=== PATIENT | female | born 1975 | race Caucasian/White ===

== ENCOUNTER → 2016-08-19 | Outpatient (CLI) | payer OTHER ==
[~2016-08-19] MED LIST: DRGTP12 TOP; HYDR-4079 PO; NRN600 PO
--- NOTE | 2016-08-19 14:16 | DIAGNOSTIC IMAGING REPORT ---
LEFT SHOULDER MIN 2 VIEWS ROUTINE CLINICAL HISTORY: Left shoulder pain COMPARISON: None. DISCUSSION: No fractures or dislocations are visualized. There are no visible periarticular calcifications. No destructive lesions are evident. IMPRESSION: Unremarkable conventional radiographic evaluation of the left shoulder. Electronically signed by: Brooks Johnson M.D. 08/19/2016 2:14 PM Dictated Date/Time: 08/19/2016 2:14 PM
== END | disposition home or self-care (01) ==
LOC: C.RAD 13:51
PROVIDERS: ATTEND Physical Medicine & Rehabilitation
DX: M47.892 Other spondylosis, cervical region (principal); M54.12 Radiculopathy, cervical region; M54.14 Radiculopathy, thoracic region; M54.6 Pain in thoracic spine; M62.830 Muscle spasm of back; M60.9 Myositis, unspecified; M79.1 Myalgia; M99.01 Segmental and somatic dysfunction of cervical region; M99.02 Segmental and somatic dysfunction of thoracic region; M99.03 Segmental and somatic dysfunction of lumbar region; F11.20 Opioid dependence, uncomplicated; R20.2 Paresthesia of skin; G89.4 Chronic pain syndrome; F17.210 Nicotine dependence, cigarettes, uncomplicated

== ENCOUNTER 2016-12-03 08:51 | Emergency (ER) | payer OTHER ==
[~2016-12-03] VITALS: Ht 154.9 cm; Wt 39.7 kg
[2016-12-03 09:02] VITALS: TEMP 36.9; Ht 154.9 cm; Wt 39.7 kg
[2016-12-03] MEDS ORDERED: NRN600 PO (09:36)
[2016-12-03] MEDS ORDERED: DRGTP12 TOP (09:36)
[2016-12-03] MEDS ORDERED: HYDR-4079 PO (09:36)
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
[2016-12-03 11:12] VITALS: BP 129/96; PULSE 82; O2SAT 97
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
== END 2016-12-03 11:13 | disposition home or self-care (01) ==
LOC: C.EDB 08:53
DX: M54.2 Cervicalgia (principal); M54.6 Pain in thoracic spine; R20.2 Paresthesia of skin; Z79.891 Long term (current) use of opiate analgesic; Z79.899 Other long term (current) drug therapy; V43.92XA Unspecified car occupant injured in collision with other type car in traffic accident, initial encounter; F17.200 Nicotine dependence, unspecified, uncomplicated

== ENCOUNTER → 2016-12-09 | Outpatient (CLI) | payer OTHER ==
--- NOTE | 2016-12-09 13:59 | MAMMOGRAPHY REPORT ---
BILATERAL DIGITAL DIAGNOSTIC MAMMOGRAM TOMOSYNTHESIS WITH CAD AND TARGETED LEFT ULTRASOUND: 12/09/2016 CLINICAL HISTORY: The patient reports a palpable lump in her left breast, which is sometimes painful. TECHNIQUE: Breast tomosynthesis in addition to standard 2D mammography was performed. Current study was also evaluated with a Computer Aided Detection (CAD) system. Bilateral CC and MLO and left XCCL 2-D and tomosynthesis images were obtained. COMPARISON: Comparison is made to exam dated: 05/14/2008. BREAST COMPOSITION: The tissue of both breasts is extremely dense, which lowers the sensitivity of m ammography. FINDINGS: A triangle marker ingram the site of the palpable lump in the left superior breast. At the site of the palpable lump there is an oval circumscribed mass, best seen on the tomosynthesis images . The remainder of both breasts demonstrate no suspicious masses, calcifications, or areas of zora ectural distortion. Targeted ultrasound was performed of the area of the palpable lump pointed out by the patient, in the left breast at 2:00 approximately 8 cm from the nipple. At the site of the palpable lump there is a n oval circumscribed 9 x 3 x 7 mm mass, which contains an echogenic fatty hilum and thin peripheral c ortex as well as internal vascularity. Findings are benign and consistent with a morphologically nor mal intramammary lymph node. This corresponds with the mammographic mass. The lymph node appears st able compared to a prior 2008 ultrasound exam. No suspicious masses were evident. IMPRESSION: ACR BI-RADS CATEGORY 2: BENIGN, TARGETED ULTRASOUND ACR BI-RADS CATEGORY 2: BENIGN The palpable left breast lump corresponds with a benign 9 mm intramammary lymph node on ultrasound. There is no mammographic or targeted sonographic evidence of malignancy. Recommend clinical follow-u p, and recommend routine bilateral screening mammograms in one year. The patient has been verbally notified of the results. Approximately 10% of breast cancers are not detected with mammography. A negative mammographic report should not delay biopsy if a clinically suggestive mass is present. Esperanza Dupree M.D. /:12/09/2016 12:01:59 [employer]door Landscape Architect: Aundrea CENTENO)(David), [facility] letter sent: Normal 1/2 BI-RADS Code: ACR BI-RADS Category 2: Benign Ultrasound BI-RADS: ACR BI-RADS Category 2: Benign
== END | disposition home or self-care (01) ==
LOC: C.MAMM 10:58
PROVIDERS: ATTEND Obstetrics & Gynecology
DX: N63 Unspecified lump in breast (principal); N64.4 Mastodynia